=== PATIENT | male | born 1970 | race Caucasian/White ===

== ENCOUNTER 2018-02-26 12:52 | Emergency (ER) | payer BC ==
[2018-02-26 14:06] VITALS: BP 136/83
--- NOTE | 2018-02-26 14:18 | ED ---
Skin Complaint - HPI Summary HPI Summary: 47 yr old with pustules left arm. He scratched his left wrist area on metal door on 02/23 and then on morning of 02/24 the patient developed redness and also pustules left forearm and left arm one on each site. He denies fever, chills. Doesn't know his last BOOSTRIX shot. - History of Current Complaint Chief Complaint: UCSkin Time Seen by Provider: 02/26/18 14:06 Stated Complaint: SKIN COMP Pain Intensity: 0 - Allergy/Home Medications Allergies/Adverse Reactions: Allergies Allergy/AdvReac Type Severity Reaction Status Date / Time erythromycin Allergy Rash Uncoded 02/26/18 13:52 Home Medications: Home Medications Aspirin [Aspir-Low] 81 mg PO DAILY 02/26/18 [History Confirmed 02/26/18] Ibuprofen TAB* [Motrin TAB* 800 MG] 800 mg PO ONCE PRN 02/26/18 [History Confirmed 02/26/18] Lisinopril/HCTZ 20/12.5(NF) [Zestoretic 20/12.5(NF)] 1 tab PO DAILY 02/26/18 [ History Confirmed 02/26/18] PMH/Surg Hx/FS Hx/Imm Hx - Surgical History Surgery Procedure, Year, and Place: benign tumor from right great toe 1991 Infectious Disease History: No Infectious Disease History: Denies: Traveled Outside the [place] in Last 30 Days - Family History Known Family History: Positive: None - Social History Occupation: Employed Full-time Alcohol Use: Occasionally Substance Use Type: Reports: None Smoking Status (MU): Never Smoked Tobacco Review of Systems Constitutional: Negative Positive: Other - abrasion and pustules arm All Other Systems Reviewed And Are Negative: Yes Physical Exam Triage Information Reviewed: Yes Vital Signs On Initial Exam: Initial Vitals Temp Pulse Resp BP Pulse Ox 98 F 79 18 136/83 79 02/26/18 13:58 02/26/18 13:58 02/26/18 13:58 02/26/18 13:58 02/26/18 13:58 Vital Signs Reviewed: Yes Appearance: Positive: Well-Appearing, No Pain Distress Skin: Positive: Other - Old pustule with scab on the left forearm and left arm with also mild redness around the abrasion left wrist. No drainage at this point. No streaking. These areas are isolated and from each other. Head/Face: Positive: Normal Head/Face Inspection Eyes: Positive: EOMI Respiratory/Lung Sounds: Positive: Clear to Auscultation, Breath Sounds Present Cardiovascular: Positive: RRR. Negative: Murmur Abdomen Description: Positive: Nontender Musculoskeletal: Positive: Strength/ROM Intact Neurological: Positive: Sensory/Motor Intact, Alert, Oriented to Person Place, Time, CN Intact II-III Psychiatric: Positive: Normal - [place] Coma Scale Best Eye Response: 4 - Spontaneous Best Motor Response: 6 - Obeys Commands Best Verbal Response: 5 - Oriented Coma Scale Total: 15 Diagnostics - Vital Signs Vital Signs Temp Pulse Resp BP Pulse Ox 02/26/18 13:58 98 F 79 18 136/83 79 - Laboratory Lab Statement: Any lab studies that have been ordered have been reviewed, and results considered in the medical decision making process. Course/Dx - Course Course Of Treatment: 47 yr old male with abrasion and secondary isolated cellulitis wrist, and there are also two pustule, scab areas to the left forearm and upper arm. - Diagnoses Provider Diagnoses: Cellulitis of wrist, Furuncle Discharge - Sign-Out/Discharge Documenting (check all that apply): Patient Departure All imaging exams completed and their final reports reviewed: No Studies - Discharge Plan Condition: Good Disposition: HOME Prescriptions: DOXYcycline CAP(*) [DOXYcycline 100MG CAP(*)] 100 mg PO BID #20 cap Patient Education Materials: Furunculosis and Carbunculosis (ED), Abrasion (ED) Referrals: Kamla Ayala PA [Primary Care Provider] - - Billing Disposition and Condition Condition: GOOD Disposition: Home
[2018-02-26] MEDS ORDERED: Tetan/Diph/Pertus SYR(Tdap)* 0.5 ML SYR(BOOSTRIX) use SYR IM ONE (14:19)
== END 2018-02-26 14:27 | disposition home or self-care (01) ==
LOC: UCCORT 12:52
DX: L03.114 Cellulitis of left upper limb (principal); L02.424 Furuncle of left upper limb; Z79.82 Long term (current) use of aspirin; Z88.1 Allergy status to other antibiotic agents
CPT/HCPCS: 90715; 99212; G0463

== ENCOUNTER 2018-02-27 08:16 | Emergency (ER) | payer BC ==
--- NOTE | 2018-02-27 09:03 | ED ---
Skin Complaint - HPI Summary HPI Summary: Pt is a 47 y/o male who presents to the ED c/o skin abrasion. He scraped his left hand on the door of a restaurant 4 days ago. 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 Over the next few days, he first noticed welts traveling up his left arm. The welts have now spread to both legs, his right cheek, and neck, but not his right arm. He describes the welts as swollen with purulent discharge and tender, but not itchy. Last night he began to feel flu-adrian, reporting body aches, stiff neck, and mild SOB. He took Ibuprofen to the symptoms. He denies any fever, chills, congestion, photophobia, or RIVERA. At an urgent care yesterday he was put on Doxycycline, which has not helped his symptoms. PMHx HTN and GERD. - History of Current Complaint Chief Complaint: EDRashSkinAbscess Time Seen by Provider: 02/27/18 08:44 Stated Complaint: CUT/RASH DEVELOPED Hx Obtained From: Patient Onset/Duration: Started Days Ago - 4, Worse Since Timing: Constant Current Severity: Mild Pain Intensity: 2 Pain Scale Used: 0-10 Numeric Skin Location: Neck, Arm, Hand, Leg Character: Swelling, Pain, Redness, Raised Aggravating Symptom(s): Touch Alleviating Symptom(s): Nothing - Allergy/Home Medications Allergies/Adverse Reactions: Allergies Allergy/AdvReac Type Severity Reaction Status Date / Time erythromycin Allergy Rash Uncoded 02/27/18 08:43 PMH/Surg Hx/FS Hx/Imm Hx Previously Healthy: Yes Endocrine/Hematology History: Denies: Hx Diabetes Cardiovascular History: Reports: Hx Hypertension GI History: Reports: Hx Gastroesophageal Reflux Disease - Surgical History Surgery Procedure, Year, and Place: benign tumor from right great toe 1991 Infectious Disease History: No Infectious Disease History: Denies: Traveled Outside the [place] in Last 30 Days - Family History Known Family History: Positive: Diabetes - Social History Alcohol Use: Occasionally Hx Substance Use: No Substance Use Type: Reports: None Hx Tobacco Use: No Smoking Status (MU): Never Smoked Tobacco Review of Systems Positive: Fatigue. Negative: Fever, Chills Cardiovascular: Negative Respiratory: Negative Gastrointestinal: Negative Positive: Rash Negative: Headache All Other Systems Reviewed And Are Negative: Yes Physical Exam - Summary Physical Exam Summary: Appearance: Well appearing, no pain distress Skin: warm, dry, reflects adequate perfusion, raised erythematous lesions with excoriated centers on left forearm, anterior and posterior neck, and bilateral LE Head/face: normal Eyes: EOMI, NICHELLE ENT: mucous membranes moist Neck: supple, non-tender Respiratory: CTA, breath sounds present Cardiovascular: RRR, pulses symmetrical Abdomen: non-tender, soft Bowel Sounds: present Musculoskeletal: normal, strength/ROM intact Neuro: normal, sensory motor intact, A&Ox3 Triage Information Reviewed: Yes Vital Signs On Initial Exam: Initial Vitals Temp Pulse Resp BP Pulse Ox 98.8 F 99 20 151/89 98 02/27/18 08:40 02/27/18 08:40 02/27/18 08:40 02/27/18 08:40 02/27/18 08:40 Vital Signs Reviewed: Yes Appearance: Positive: Well-Appearing, No Pain Distress, Well-Nourished Skin: Positive: Warm, Other - Numerous erythematous raised lesions with central excoriations and crusting. Lesions to the bilateral lower extremities, left forearm, anterior and posterior neck Eyes: Positive: EOMI ENT: Positive: Normal ENT inspection Neck: Positive: Supple, Nontender. Negative: Nuchal Rigidity Respiratory/Lung Sounds: Positive: Clear to Auscultation Cardiovascular: Positive: RRR Musculoskeletal: Positive: Normal, Strength/ROM Intact Neurological: Positive: Alert, Oriented to Person Place, Time Diagnostics - Vital Signs Vital Signs Temp Pulse Resp BP Pulse Ox 02/27/18 08:40 98.8 F 99 20 151/89 98 - Laboratory Lab Statement: Any lab studies that have been ordered have been reviewed, and results considered in the medical decision making process. Course/Dx - Course Course Of Treatment: Patient with rash that appears to be impetigo with central pustular lesions with surrounding erythema. Patient is oriented these. He is on doxycycline already. Provided him with chlorhexidine soap and also will use topical Bactroban. Have him follow up with primary care physician in 2 days. - Differential Diagnoses - Skin Complaint Differential Diagnoses: Eczema, Impetigo, Local Allergic Reaction, Poison [place], Poison [place] - Diagnoses Provider Diagnoses: Impetigo Discharge - Sign-Out/Discharge Documenting (check all that apply): Patient Departure - Discharge Plan Condition: Improved Disposition: HOME Prescriptions: Mupirocin 2% CREAM* [Bactroban 2% CREAM*] 1 applic TOPICAL TID 10 Days #1 tube Patient Education Materials: Impetigo (ED) Forms: *Work Release Referrals: Kamla Ayala PA [Primary Care Provider] - Additional Instructions: Wash your body today with soap provided. Repeat this in 2 days. Return with fevers, worse, new symptoms or other concerns. Continue doxycycline. Tylenol for body aches or chills. Follow-up with your primary care physician in the next 1-2 days for wound recheck. - Billing Disposition and Condition Condition: IMPROVED Disposition: Home - Attestation Statements Document Initiated by Maria Del Rosario: Yes Documenting Scribe: Dinora Ochoa Provider For Whom Maria Del Rosario is Documenting (Include Credential): Jeremi Herrera MD Scribe Attestation: Dinora Hernandez, scribed for Jeremi Herrera MD on 02/27/18 at 1127. Scribe Documentation Reviewed: Yes Provider Attestation: The documentation as recorded by the Dinora ojeda accurately reflects the service I personally performed and the decisions made by , Jeremi Herrera MD
[2018-02-27 10:09] VITALS: BP 144/86
== END 2018-02-27 10:07 | disposition home or self-care (01) ==
LOC: ED 08:16
DX: L01.00 Impetigo, unspecified (principal); I10 Essential (primary) hypertension; K21.9 Gastro-esophageal reflux disease without esophagitis
CPT/HCPCS: 36415; 86703; 99281

== ENCOUNTER 2018-02-28 11:17 | Observation (INO) | payer BC ==
[2018-02-28] MEDS ORDERED: NS 0.9% 1000 ML* 1,000 ML IV ONE (12:48)
[2018-02-28] MEDS ORDERED: Ketorolac INJ* 30 MG/ML 1 ML VIAL IV PUSH ONE (12:50)
--- NOTE | 2018-02-28 12:58 | ED ---
Skin Complaint - HPI Summary HPI Summary: Patient is a 39-year-old who presents emergency department for ongoing rash 3 days. Patient denies past medical of acid reflux and hypertension. 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 Patient states that 3 days ago he was at work when he Only scraped his arm on a doorway. He states area progressively got redder and became a bump. He states that he then developed a second bump on his left arm and was checked out at [facility]. He was started on doxycycline. Patient states that lesions spread into legs and neck and face. Patient was seen in ER yesterday and Bactroban ointment was added. Patient returns today because he feels rash is getting worse and he also was feeling feverish and myalgia. Otherwise denies upper respiratory symptoms, abdominal pain, vomiting, diarrhea. Symptoms are [id number] in severity. Touching affected areas makes symptoms worse. Rest makes symptoms better. Patient states areas are painful and mildly itchy. Patient states no one at home has similar rash. - History of Current Complaint Chief Complaint: EDRashSkinAbscess Time Seen by Provider: 02/28/18 12:31 Stated Complaint: WAS TOLD TO RETURN Hx Obtained From: Patient Pain Intensity: 6 - Allergy/Home Medications Allergies/Adverse Reactions: Allergies Allergy/AdvReac Type Severity Reaction Status Date / Time erythromycin base Allergy Rash Verified 02/28/18 11:20 PMH/Surg Hx/FS Hx/Imm Hx Previously Healthy: Yes Endocrine/Hematology History: Denies: Hx Diabetes Cardiovascular History: Reports: Hx Hypertension GI History: Reports: Hx Gastroesophageal Reflux Disease - Surgical History Surgery Procedure, Year, and Place: benign tumor from right great toe 1991 Infectious Disease History: No Infectious Disease History: Denies: Traveled Outside the [place] in Last 30 Days - Family History Known Family History: Positive: None, Diabetes - Social History Occupation: Employed Full-time Lives: With Family Alcohol Use: Occasionally Hx Substance Use: No Substance Use Type: Reports: None Hx Tobacco Use: No Smoking Status (MU): Never Smoked Tobacco Review of Systems Positive: Fever, Chills Eyes: Negative ENT: Negative Cardiovascular: Negative Respiratory: Negative Gastrointestinal: Negative Positive: Myalgia Positive: Rash Neurological: Negative All Other Systems Reviewed And Are Negative: Yes Physical Exam Triage Information Reviewed: Yes Vital Signs On Initial Exam: Initial Vitals Temp Pulse Resp BP Pulse Ox 99.6 F 102 16 173/111 99 02/28/18 11:19 02/28/18 11:19 02/28/18 11:19 02/28/18 11:19 02/28/18 11:19 Vital Signs Reviewed: Yes Appearance: Positive: Well-Appearing - Pt. sitting on bed in NAD. Skin: Positive: Warm, Dry, Other - On left lower arm there are two lesions that are red, indurated and painful with scabbing in the center. To lower legs bilaterally there are lesions that are erythematous and indurated and appear more like nodules. Also located at the top of back and neck and right side of face. Head/Face: Positive: Normal Head/Face Inspection Eyes: Positive: Normal, EOMI Neurological: Positive: Normal, CN Intact II-III Psychiatric: Positive: Affect/Mood Appropriate Diagnostics - Vital Signs Vital Signs Temp Pulse Resp BP Pulse Ox 02/28/18 11:19 99.6 F 102 16 173/111 99 - Laboratory Result Diagrams: 03/01/18 05:26 03/01/18 05:26 Lab Statement: Any lab studies that have been ordered have been reviewed, and results considered in the medical decision making process. Course/Dx - Course Course Of Treatment: Patient presenting with ongoing rash after 3 days of doxycycline. He has a low-grade fever in the ER and is mildly tachycardic. Blood pressure elevated. Basic blood work. Patient IV Toradol for pain. Case discussed with Dr. Fung who examined patient. She is concerned for possible MRSA infection. CBC shows normal WBC. Mildly elevated glucose, sed rate and CRP. However patient's legs do appear to be similar to erythema nodosum, concern for potential under lying immunological disorder. Given ongoing worsening rash hospitalist was consulted for admission. I spoke with Dr. Perdomo and she has accepted pt. for admission. - Differential Diagnoses - Skin Complaint Differential Diagnoses: Abscess, Cellulitis, Contact Dermatitis, MRSA, Urticaria - Diagnoses Provider Diagnoses: Rash and nonspecific skin eruption Discharge - Sign-Out/Discharge Documenting (check all that apply): Patient Departure - Discharge Plan Condition: Stable Disposition: ADMITTED TO [facility] - Billing Disposition and Condition Condition: STABLE Disposition: Admitted to [facility]
[2018-02-28 13:20] LABS: ABS Basophils 0 10^3/ul (0-0.2); ABS Eosinophils 0 10^3/ul (0-0.6); ABS Lymphocytes 1.3 10^3/ul (1.0-4.8); ABS Monocytes 0.5 10^3/ul (0-0.8); ABS Neutrophils 5.4 10^3/ul (1.5-7.7); ABS Nucleated RBC 0 10^3/ul; Eosinophil % 0.6 % (0-6); Hematocrit 36 % (42-52); Hemoglobin 12.6 g/dl (14.0-18.0); Lymphocyte % 17.5 % (25-47); Mean Corpuscular HGB Conc 36 g/dl (31-36); Mean Corpuscular Hemoglobin 31 pg (27-31); Mean Corpuscular Volume 87 fL (80-94); Nucleated Red Blood Cells % 0.1; Platelet Count 217 10^3/ul (150-450); Red Blood Count 4.07 10^6/ul (4.00-5.40); Red Cell Distribution Width 13 % (10.5-15); White Blood Count 7.2 10^3/ul (3.5-10.8)
[2018-02-28 13:38] LABS: EGFR Non-African American 90.1 (>60)
[2018-02-28] MEDS ORDERED: Vancomycin(*) 1,000 MG in NS 0.9% 250 ML* 250 ML IVPB ONE ×2 (14:28→17:05)
[2018-02-28] MEDS ORDERED: Magnesium Hydroxide LIQ* 30 ML UDC PO PRN (16:00)
[2018-02-28] MEDS ORDERED: Ondansetron INJ* 2 MG/ML VIAL IV PRN (16:00)
[2018-02-28] MEDS ORDERED: Al Hydrox/Mg Hydrox/Simet LIQ* 30 ML UDC PO PRN (16:00)
[2018-02-28] MEDS ORDERED: Acetaminophen TAB* 325 MG PO PRN (16:00)
[2018-02-28] MEDS: NS 0.9% 1000 ML* 1,000 ML IV SCH (17:57)
[2018-02-28] MEDS ORDERED: Vancomycin per Pharmacy* NOTE FOLLOW UP PRN (18:40)
--- NOTE | 2018-02-28 21:09 | HP ---
HISTORY AND PHYSICAL: ADDENDUM: ASSESSMENT AND PLAN: Rash. We will also be continuing vancomycin. ERIC MARIA, LEONID [id number]/[facility] #: [id number] [facility] HOSPITALJamey
--- NOTE | 2018-02-28 21:51 | HP ---
AMENDED REPORT NOW INCLUDES DESIGNATED COSIGNER ADDENDUM NOW INCLUDED ON THIS REPORT CC: MIGUEL Enriquez; Dr. Fonseca.* HISTORY AND PHYSICAL: DATE OF ADMISSION: 02/28/18 PRIMARY CARE PHYSICIAN: MIGUEL Enriquez. OTHER PROVIDERS: Dr. Fonseca has been consulted. ATTENDING PHYSICIAN: Dr. Loyola * (dictated by Hannah Damico, LEONID) CHIEF COMPLAINT: Rash. HISTORY OF PRESENT ILLNESS: Mr. Rivas is a 47-year-old man with a past medical history of hypertension, GERD (for which he gets scoped every 2 years), tinnitus, borderline hypertension, bilateral hand pain who presented to the ED today due to worsening rash. 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 As the weekend progressed, he started to notice the area was "red and angry" and then throughout the weekend, he started noticing subsequent areas of erythema and induration on his upper extremities, specifically first his left upper extremity. He presented to urgent care clinic on Monday and was provided with a prescription of doxycycline and Bactroban ointment. He reports over the last couple of days, he has felt feverish, but with no recorded temp. He also reports he felt "flu like" as he was having "body aches". The patient presented today because the rash has begun to spread further and now includes face, back, and bilateral legs. Reports areas of erythema and induration will often have pustules like a pimple. Reports these areas do not itch. Reports these areas are painful and occasionally ooze. The patient reports that he was completely vaccinated as a child. No history of chicken pox, but believes he possibly had a mild case of shingles several years ago. He denies any recent illness, tick bites, travel, sick contact, new medications, new diet, new herbal supplements, or any other change in environment. While in the ED, the patient received normal saline a 1000 mL, Toradol 30 mg IV, and vancomycin 1000 mg. We were asked to evaluate for admission. PAST MEDICAL HISTORY: 1. Hypertension. 2. GERD, for which the patient is scoped every 2 years. 3. Tinnitus. 4. Borderline diabetes which is diet controlled 5. Bilateral hand pain. PAST SURGICAL HISTORY: 1. Surgery for benign tumor on right great toe. HOME MEDICATIONS: 1. Aspirin 81 mg p.o. daily. 2. Doxycycline 100 mg p.o. b.i.d. 3. Nexium 40 mg p.o. daily. 4. Ibuprofen 800 mg p.o. daily. 5. Lisinopril/HCTZ 20/12.5 one tab p.o. daily. 6. Mupirocin one application topical t.i.d. ALLERGIES: ERYTHROMYCIN - rash. FAMILY HISTORY: Reports many family members have diabetes. Reports grandfather passed at age 65 from CAD. Other grandparents lived into 90s. Denies cancer family history. SOCIAL HISTORY: Denies tobacco use. Reports occasional EtOH use. Denies drug use. 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 The patient is , but , and lives with his girlfriend and her 2 kids. The patient reports that his , Helga Rivas, will be his surrogate decision maker in the event he is unable to make his own decisions. REVIEW OF SYSTEMS: Constitutional: No fevers. No anorexia. Reports he felt "feverish" but no recorded temp. Cardiac: No chest pain. No edema. Respiratory: No cough. No hemoptysis. No shortness of breath. Reports muscle pain with breathing, which he associates to flu like symptoms. GI: No nausea, vomiting. No diarrhea. No abdominal pain. : No gross hematuria. No dysuria. Neurologic: No focal weakness or sensory loss. No dizziness. Eyes: No visual complaints. ENT: No sore throat. No nasal congestion. No ear pain. Musculoskeletal: Reports 2 to 3 days of "body aches". Skin: The patient has multiple areas on bilateral arms, back, and bilateral legs of rash. Psych: No psychosis, anxiety, depression. PHYSICAL EXAMINATION GENERAL: Mr. Rivas is a well-developed, well-nourished middle-aged man sitting on the ED stretcher and he is no acute distress. Appears stated age. VITAL SIGNS: Temp 98.1, HR 92, RR 16, O2 sat 98%, BP 143/90. HEENT: Eyes: Conjunctivae clear. Pupils are equal and reactive. EOMs intact. ENT: External ears and nose normal. Tympanic canals patent. Tympanic membranes normal. Lips: Within normal limits. Oropharynx: Free from lesions , erythema, exudate. LYMPHATIC: No cervical, supraclavicular lymphadenopathy. RESPIRATORY: Respiratory Effort: No accessory muscle use. The patient breathing with ease. Lungs: Clear to auscultation. No rales, rhonchi, or wheezing. CARDIAC: No murmurs, rubs, or gallops. S1, S2 present. ABDOMEN: Soft, nontender, nondistended, bowel sounds x4. EXTREMITIES: No lower extremity edema. Pedal pulses positive. MUSCULOSKELETAL: No clubbing or cyanosis. No swollen joints. Full range of motion. NEUROLOGIC: Sensation is grossly intact. No neuro deficits appreciated. SKIN: The patient has circular reddened, indurated, warm spots on bilateral legs, right cheek, upper back, and bilateral arms. PSYCH: Oriented x3. Mood and affect are normal. DIAGNOSTIC STUDIES/LABORATORY DATA: WBC 7.2, RBC 4.07, hemoglobin 12.6, hematocrit 36, platelets 217. Sodium 138, potassium 4.0, chloride 105, carbon dioxide 27, BUN 12, creatinine 0.90, glucose of 155, lactic is 1.0, calcium 8.9. Total bilirubin 0.70, AST 21, ALT 21, alk phos 75. CRP 59.01. ESR pending. Culture from left arm wound is MRSA negative. Awaiting Gram stain final. ASSESSMENT AND PLAN: Mr. Rivas is a 47-year-old man with a past medical history of hypertension, gastroesophageal reflux disease, tinnitus, borderline diabetes, bilateral hand pain, who presented to the emergency department today with a rash and has failed outpatient treatment. The patient will be admitted to observation for further evaluation. 1. Rash. Assessment: As mentioned above, the patient has multiple areas of circular, reddened, indurated, warm spots on face, bilateral arms, upper back, and bilateral lower legs. Plan: Dermatology has been contacted and plans to see the patient tomorrow. We very much appreciate their consultation. Labs have also been ordered for send out and for routine labs in the morning. We will also be continuing vancomycin and IV fluids. 2. Hypertension. Assessment: The patient is currently normotensive. Plan: We will continue the patient's home medications the same. We will monitor vital signs routinely. 3. Gastroesophageal reflux disease. Assessment: The patient is currently asymptomatic. Plan: We will continue patient's home medication of Nexium. 4. Tinnitus. Assessment: Asymptomatic currently. Plan: The patient to follow up with primary care provider as this is chronic and they are aware of this problem. 5. Borderline diabetes. Assessment: Nonfasting random glucose is 155. The patient reports he is controlling diabetes risk factors by reducing carbohydrate intake, adapting occasional vegetarian diet, and exercising regularly. Plan: The patient to follow up with primary care provider after discharge for further evaluation. 6. Bilateral hand pain. Assessment: The patient is currently pain free. The patient reports he takes ibuprofen 800 mg daily due to bilateral hand pain. Plan: The patient has pain meds ordered p.r.n. We discussed risks of taking ibuprofen regularly. 7. FEN: The patient will be placed on a regular diet as he does not prefer a vegetarian diet. We will also try the fluid replacement at 75 mL/hour of normal saline. 8. Code status: Full code. 9. DVT prophylaxis. The patient is at moderate risk. We will encourage early and frequent ambulation. SCDs ordered. TIME SPENT: Approximately 60 minutes were spent on this admission, greater than half the time was spent with the patient, obtaining my history, performing the physical exam, and reviewing my plan of care. This case has been reviewed by my attending, Dr. Loyola, who agreed with the plan of care. LEONID BOUDREAUX
[2018-02-28] MEDS: Vancomycin(*) 1,250 MG in NS 0.9% 250 ML* 250 ML IVPB SCH (22:16)
[2018-02-28] MEDS: Ketorolac INJ* 30 MG/ML 1 ML VIAL IV PUSH PRN (22:23)
[2018-03-01 05:39] LABS: ABS Basophils 0 10^3/ul (0-0.2); ABS Eosinophils 0.1 10^3/ul (0-0.6); ABS Lymphocytes 1.5 10^3/ul (1.0-4.8); ABS Monocytes 0.5 10^3/ul (0-0.8); ABS Neutrophils 4.7 10^3/ul (1.5-7.7); ABS Nucleated RBC 0 10^3/ul; Eosinophil % 1.3 % (0-6); Hematocrit 35 % (42-52); Hemoglobin 11.8 g/dl (14.0-18.0); Mean Corpuscular HGB Conc 34 g/dl (31-36); Mean Corpuscular Hemoglobin 30 pg (27-31); Mean Corpuscular Volume 88 fL (80-94); Nucleated Red Blood Cells % 0; Platelet Count 201 10^3/ul (150-450); Red Blood Count 3.92 10^6/ul (4.00-5.40); Red Cell Distribution Width 13 % (10.5-15); White Blood Count 6.9 10^3/ul (3.5-10.8)
[2018-03-01 06:00] LABS: EGFR Non-African American 107.8 (>60)
[2018-03-01] MEDS: Vancomycin(*) 1,250 MG in NS 0.9% 250 ML* 250 ML IVPB SCH (06:09)
[2018-03-01] MEDS ORDERED: Omeprazole CAP* 20 MG PO SCH (09:00)
[2018-03-01] MEDS: Ketorolac INJ* 30 MG/ML 1 ML VIAL IV PUSH PRN ×2 (10:35→20:11)
[2018-03-01] MEDS: NS 0.9% 1000 ML* 1,000 ML IV SCH (10:35)
--- NOTE | 2018-03-01 11:57 | PN ---
Subjective Date of Service: 03/01/18 Interval History: Resting in bed. Reports general body aches, but less than previously. Patient requested Toradol and nurse notified. Denies feeling feverish. No recorded temps. 12 point ROS completed and all other negative except above mentioned IV fluids infusing. Discussed plan for ID consult. Patient stated understanding. Family History: Unchanged from Admission Social History: Unchanged from Admission Past Medical History: Unchanged from Admission Objective Active Medications: Acetaminophen (Tylenol Tab*) 650 mg PO Q4H PRN PRN Reason: FEVER/PAIN Al Hydrox/Mg Hydrox/Simethicone (Maalox Plus*) 30 ml PO Q6H PRN PRN Reason: INDIGESTION Hydrochlorothiazide (Hydrodiuril Tab*) 12.5 mg PO 2000 [facility] Sodium Chloride (Ns 0.9% 1000 Ml*) 1,000 mls @ 75 mls/hr IV PER RATE [facility] Last Admin: 03/01/18 10:35 Dose: 75 mls/hr Ketorolac Tromethamine (Toradol Inj*) 30 mg IV PUSH Q6H PRN PRN Reason: PAIN Last Admin: 03/01/18 10:35 Dose: 30 mg Lisinopril (Prinivil Tab*) 20 mg PO 2000 [facility] Magnesium Hydroxide (Milk Of Magnesia Liq*) 30 ml PO Q4H PRN PRN Reason: CONSTIPATION Omeprazole (Prilosec Cap*) 20 mg PO DAILY [facility] Last Admin: 03/01/18 08:18 Dose: 20 mg Ondansetron HCl (Zofran Inj*) 4 mg IV Q4H PRN PRN Reason: NAUSEA/VOMITING Pharmacy Consult (Vancomycin Per Pharmacy*) 1 note FOLLOW UP . PRN PRN Reason: PER PROTOCOL Pharmacy Profile Note (Vancomycin Trough Check) 1 note FOLLOW UP 1330 ONE Stop: 03/01/18 13:31 Vital Signs - 8 hr 03/01/18 03:57 Temperature 98.1 F Pulse Rate 82 Respiratory 18 Rate Blood Pressure 162/92 (mmHg) O2 Sat by Pulse 98 Oximetry Oxygen Devices in Use Now: None Appearance: Well appearing Eyes: No Scleral Icterus Ears/Nose/Mouth/Throat: Clear Oropharnyx, Mucous Membranes Moist Neck: NL Appearance and Movements; NL JVP Respiratory: Symmetrical Chest Expansion and Respiratory Effort, Clear to Auscultation Cardiovascular: NL Sounds; No Murmurs; No JVD, RRR, No Edema Abdominal: NL Sounds; No Tenderness; No Distention Lymphatic: No Cervical Adenopathy Extremities: No Edema, No Clubbing, Cyanosis Skin: - - Round, reddened, indurated spots on bilat arms, bilat legs, and one on right face. Neurological: Alert and Oriented x 3 Nutrition: Taking PO's Result Diagrams: 03/01/18 05:26 03/01/18 05:26 Microbiology and Other Data: Microbiology 02/28/18 14:25 Skin and Soft Tissue MRSA/MSSA (PCR - Final Arm Left Mrsa Negative S.aureus Negative Gram Stain - Final Wound Culture - Preliminary No Growth Day 1 Assess/Plan/Problems-Billing Assessment: 47 yr old male with rash which developed after scrap to left hand. Scrap occured on Friday 02/23 and rash developed through the weekend. - Patient Problems (1) Rash and nonspecific skin eruption Comment: - Derm consulted. Suspected Erythema Nodosum and/or Carbuncles. - ID consulted and does not suspected infection in origin, therefore, vanco stopped. - Plan for biopsy (2) Hypertension Comment: - Continue home medications (3) Myalgia Comment: - Continue pain medications prn Status and Disposition: OBV. Continue to monitor and provide supportive care. I very much appreciate Derm, ID and pathology consults. Attending: Josue Laws
[2018-03-01] MEDS ORDERED: Vancomycin Trough Check NOTE FOLLOW UP ONE (13:30)
--- NOTE | 2018-03-01 15:02 | CONS ---
CONSULTATION REPORT: DATE OF CONSULT: 03/01/18 REQUESTING PROVIDER: Hannah Damico NP CONSULTING SERVICE: Infectious Disease. REASON FOR CONSULT: Skin rash. IMPRESSION: Recent injury to the left forearm with a scratch, sounds like was complicated by a localized skin and soft tissue infection versus less likely a pathergy reaction and now multiple erythematous patches with some pustular component on the face, trunk, arms, and on anterior shins less pustular component. 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 They could be a response to the initial soft infection on the left arm. Many of them on the arms were present before he started taking doxycycline, those on the legs were not. It could be an allergic reaction to doxycycline on the legs. RECOMMENDATIONS: We will stop the vancomycin. Recommend corticosteroid treatment. Consider skin biopsy of one of the lesions on his arms or trunk to include component of the pannus. HISTORY OF PRESENT ILLNESS: This is a 47-year-old man, who was well until last week, scratched his left arm on a door at work and developed some redness and fluid- filled vesicles. It was painful and itchy. Then, he developed more up the same arm on the left, but they were more red, larger and more painful with a pustular center. He was seen on 02/26/18 and started on doxycycline, which he took. He continued to develop more on the arms and trunk and then both anterior legs below the knee. Those are more painful on the leg. Because of more lesions developing, he came back to the hospital on 02/27/18 and they gave him mupirocin to apply to the lesions and recommended he continue doxycycline. He came back the next day with feverish feeling, chills, sweats, more lesions. He was started on vancomycin and admitted to the hospital. His C-reactive protein was 60, white count 7, sed rate 45. Creatinine 0.9, which is 0.7 today. He has got a few new spots on his right arm and back today. None of that started have resolved. They are all slightly painful except for more painful on the legs, none are itchy. Swab on the left arm was taken that showed 2+ epithelial cells, no neutrophils, possible 1+ gram-positive cocci, Staph aureus PCR negative, with cultures no growth. That was taken before he started vancomycin. He has had no fever here. His appetite is okay. No mouth or genital lesions. PAST MEDICAL HISTORY: 1. Hypertension. 2. Gastroesophageal reflux disease. 3. Tinnitus. 4. Prediabetes. ALLERGIES: ERYTHROMYCIN caused rash. MEDICATIONS: 1. Tylenol. 2. Hydrochlorothiazide. 3. Ketorolac as needed. 4. Lisinopril. 5. Omeprazole. 6. Vancomycin 1250 mg IV every 8 hours. SOCIAL HISTORY: He lives in [place]. 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 He has no travel or sick contacts. FAMILY HISTORY: No recurrent infections. REVIEW OF SYSTEMS: All negative except as noted above in the history of present illness. PHYSICAL EXAM: Vital Signs: Temperature of 36.7, heart rate 80, respiratory rate 18, blood pressure 170/90, oxygen saturation 98% on room air. In general, he is awake, not in distress. Neurologic: He is oriented x3. Follows all commands. HEENT: There is no conjunctival hemorrhage. Oropharynx without lesions. Neck is supple without mass. Lymph Nodes: There is no cervical, supraclavicular, inguinal, axillary, or epitrochlear lymphadenopathy. Heart is regular rate and rhythm without murmurs, rubs, or gallops. Lungs are clear to auscultation bilaterally. Abdomen: Soft, nontender, nondistended. There are bowel sounds present. Skin: On bilateral below the knee anterior leg, there are tender, erythematous patches about 1 to 3 cm each. On the trunk, arms, right cheek and back, there are erythematous patches with 3 to 4 mm punctuate centers, which are tender and nonfluctuant. They are nonblanching. LABORATORY DATA: Creatinine 0.7. CRP 59. White blood cell count 6.9, hemoglobin 11.8, platelets 201. Please see impressions and recommendations as outlined above, which I have discussed with Dr. Loyola. Thanks for asking me to see Mr. Rivas in consultation. [id number]/[facility] #: [id number] [facility] HOSPITALJamey
[2018-03-01] MEDS ORDERED: Aspirin EC TAB* 81 MG TAB.EC PO SCH (19:00)
[2018-03-01] MEDS ORDERED: Hydrochlorothiazide TAB* 25 MG PO SCH (20:00)
[2018-03-01] MEDS ORDERED: Lisinopril TAB* 10 MG PO SCH (20:00)
[2018-03-02 06:56] LABS: ABS Basophils 0 10^3/ul (0-0.2); ABS Eosinophils 0.1 10^3/ul (0-0.6); ABS Lymphocytes 1.6 10^3/ul (1.0-4.8); ABS Monocytes 0.4 10^3/ul (0-0.8); ABS Neutrophils 3.9 10^3/ul (1.5-7.7); ABS Nucleated RBC 0 10^3/ul; Eosinophil % 1.5 % (0-6); Hematocrit 34 % (42-52); Hemoglobin 11.9 g/dl (14.0-18.0); Lymphocyte % 26.2 % (25-47); Mean Corpuscular HGB Conc 36 g/dl (31-36); Mean Corpuscular Hemoglobin 31 pg (27-31); Mean Corpuscular Volume 88 fL (80-94); Nucleated Red Blood Cells % 0.1; Platelet Count 215 10^3/ul (150-450); Red Blood Count 3.83 10^6/ul (4.00-5.40); Red Cell Distribution Width 13 % (10.5-15)
[2018-03-02 07:12] LABS: EGFR Non-African American 107.8 (>60)
[2018-03-02] MEDS ORDERED: Dextrose 50% Syringe 50 ML* 25 GM/50 ML SYRINGE IV PUSH PRN (07:16)
[2018-03-02] MEDS ORDERED: Ibuprofen TAB* 600 MG PO PRN (07:23)
[2018-03-02] MEDS ORDERED: Insulin LISPRO* 1 UNITS UNIT SUBCUT SCH (07:30)
[2018-03-02] MEDS ORDERED: Omeprazole CAP* 20 MG PO SCH (09:00)
[2018-03-02] MEDS ORDERED: predniSONE TAB* 20 MG PO SCH (09:00)
[2018-03-02 11:00] VITALS: BP 155/97
[2018-03-02 15:27] LABS: Sm (Smith) IgG Antibody <0.2 U
--- NOTE | 2018-03-03 08:09 | DS ---
CC: MIGUEL Godoy; Dr. Josue Laws * DISCHARGE SUMMARY: DATE OF ADMISSION: 02/28/18 DATE OF DISCHARGE: 03/02/18 PRIMARY CARE PROVIDER: MIGUEL Lainez. MY ATTENDING WHILE IN THE HOSPITAL: Dr. Josue Laws.* (DICTATED BY MIGUEL ZAIDI) PRIMARY DISCHARGE DIAGNOSES: 1. Sweet's syndrome. 2. Cellulitis. SECONDARY DISCHARGE DIAGNOSES: 1. Prediabetes. 2. Hypertension. 3. Gastroesophageal reflux disease. 4. Idiopathic hand pain. STUDIES DONE WHILE IN THE HOSPITAL: None. MEDICATIONS AT DISCHARGE: 1. Nexium 40 mg p.o. daily. 2. Zestoretic 19/04.5 one tab p.o. daily. 3. Mupirocin one application topical t.i.d. 4. Tylenol 650 mg p.o. q.4 hours as needed. 5. Prednisone 60 mg p.o. daily. 6. Bactrim double strength one tab p.o. b.i.d. HOSPITAL COURSE: This is a brief summary of the patient's presentation. For more details, please see the history and physical from Hannah Damico NP on 02/28/18. In brief, the patient is a 47-year-old male with past medical history significant for the above, who presented to the emergency department after he scratched his hand on 02/23/18, which subsequently became increasingly red and painful. He had systemic symptoms including body aches and subjective fevers. He went to the urgent care and was prescribed doxycycline. After he started taking the doxycycline, he developed induration across his body with pustules, which were painful and spread all over his body including rashes that look like a bruise on his shins. The patient was admitted to the hospital. The patient was given IV vancomycin. The patient had no elevated temperature. The patient was initially tachycardic but this resolved with fluid administration. The patient had no hypoxia. The patient's initial scratch improved greatly with antibiotics. The patient's rash also improved. The patient was seen in consultation by Dr. Gen Mitchell of Infectious Disease, who believed that the patient's cellulitis improved and need no more antibiotics. Recommend corticosteroid treatment and skin biopsy. The patient was seen in consultation by Dr. Fonseca of Dermatology. The skin biopsy I believed this was related to Sweet's syndrome. The patient was started on steroids. The patient's skin biopsy came back positive for Sweet's syndrome. Dr. Fonseca believed that the patient needed more antibiotics to cover for possible carbuncles. The patient was stable and amenable for discharge on 03/02/18 with improvement in his rashes. PHYSICAL EXAMINATION ON DATE OF DISCHARGE: General: The patient is a 47-year- old male, who appears stated age and sitting comfortably in bed, in no acute distress. HEENT: Head: Normocephalic, atraumatic. Sclerae anicteric. No conjunctival injection. Nasal mucosa moist. Oral mucosa moist. No pharyngeal erythema, discharge, or exudates. Vital signs at the time of discharge: Temperature 98.6, pulse rate 91, respiratory rate 16, oxygen saturation 97% on room air, blood pressure 155/97. Neck: Supple, nontender. No lymphadenopathy. No carotid bruits auscultated. No JVD. Cardiac: Regular rate and rhythm. No clicks, murmurs, gallops, rubs. Pulses 2+ bilaterally in dorsalis pedis, posterior tibialis, and radial areas. Respiratory: Clear to auscultation bilaterally. No wheezes, rales, or rhonchi. Good air exchange bilaterally. Abdomen: Soft, nontender, nondistended. Bowel sounds present, normoactive in all 4 quadrants. No hepatosplenomegaly, no abdominal bruits auscultated. No hepatojugular reflux. Genitourinary: No suprapubic or CVA tenderness. Skin: The patient has numerous large areas of induration with a pustular center on his arms, face, chest, and hands. The patient has numerous areas of erythema on his bilateral shins. The patient has a small area on his left hand that is raised without surrounding erythema corresponding to his original injury. Neuro: Cranial nerves II through XII intact. No focal deficits. Alert and oriented x3. Psychiatric: Pleasant and cooperative. DISCHARGE PLAN: The patient will be discharged to home. The patient will have a steroid taper over approximately 3 weeks. The patient should follow up with Dermatology on Monday to assess for improvement in his rash. The patient will be continued on Bactrim for 5 more days. It is unclear whether this reaction was caused by his initial infection or by the doxycycline. The patient has been recommended not to take doxycycline in the future. The patient should follow up with primary care doctor within 1 week for general medical management. The patient did not have a significant increase in his blood glucose level on steroids while in the hospital. The patient should have a consistent carbohydrate diet and engage in activity as tolerated. TIME SPENT: Approximately 60 minutes was spent on the discharge of this patient , 30 of which was spent [id number] with the patient and obtaining history and physical and discussing treatment plan. MIGUEL ZAIDI [id number]/[facility] #: [id number] DEANGELO
== END 2018-03-02 13:00 | disposition home or self-care (01) ==
LOC: ED 11:17 → MED 15:59
PROVIDERS: ADMIT Internal Medicine; ATTEND Internal Medicine
DX: L98.2 Febrile neutrophilic dermatosis [Sweet] (principal); L03.90 Cellulitis, unspecified; R73.03 Prediabetes; I10 Essential (primary) hypertension; K21.9 Gastro-esophageal reflux disease without esophagitis; R21 Rash and other nonspecific skin eruption; Z79.82 Long term (current) use of aspirin; M79.642 Pain in left hand; M79.641 Pain in right hand; H93.19 Tinnitus, unspecified ear
CPT/HCPCS: 11100; 11101; 36415; 80048; 80053; 83516; 83605; 85025; 85652; 86038; 86140; 86225; 86235; 86255; 86431; 87070; 87077; 87102; 87116; 87205; 87206; 87640; 87641; 88305; 88312; 99284; A9270-GY; G0378; J1885; J3370; J7512

== ENCOUNTER 2019-07-03 12:38 | Emergency (ER) | payer SELFPAY ==
--- NOTE | 2019-07-03 13:30 | UC ---
Head Injury HPI - HPI Summary HPI Summary: 48-year-old male who got his long hair caught in a piece of machinery at work today which ripped out quite a large V shaped chunk of hair from the top of his head. He has no other injury. He has no complaints of pain. Last tetanus was 2 years ago. - History Of Current Complaint Stated Complaint: HEAD INJURY Time Seen by Provider: 07/03/19 13:29 Hx Obtained From: Patient Onset/Duration: Sudden Onset Severity Currently: Mild Severity Initially: Mild Character: Other - Patient denies pain Aggravating Factor(s): Nothing Alleviating Factor(s): Nothing Associated Signs And Symptoms: Positive: Negative - Allergies/Home Medications Allergies/Adverse Reactions: Allergies Allergy/AdvReac Type Severity Reaction Status Date / Time doxycycline Allergy Severe Rash Verified 07/03/19 13:31 erythromycin base Allergy Rash Verified 07/03/19 13:31 Home Medications: Home Medications Esomeprazole Magnesium [Nexium] 40 mg PO DAILY 12/31/14 [History Confirmed 07/02] Lisinopril/HCTZ 20/12.5(NF) [Zestoretic 20/12.5(NF)] 1 tab PO DAILY 02/26/18 [ History Confirmed 07/03/19] Acetaminophen TAB* [Tylenol TAB*] 650 mg PO Q4H PRN tab 03/02/18 [Rx Confirmed 07/03/19] Cholecalciferol TAB* [Vitamin D TAB*] 1,000 units PO DAILY 07/03/19 [History Confirmed 07/03/19] Ibuprofen 800 mg PO Q8H 07/03/19 [History Confirmed 07/03/19] Potassium Chlor TAB* [Potassium Chlor TAB 20 MEQ*] 40 meq PO DAILY 07/03/19 [ History Confirmed 07/03/19] PMH/Surg Hx/FS Hx/Imm Hx Previously Healthy: Yes Cardiovascular History: Hypertension - Surgical History Surgical History: Yes Surgery Procedure, Year, and Place: benign tumor from right great toe 1991 - Family History Known Family History: Positive: None, Diabetes - Social History Occupation: Employed Full-time Lives: With Family Alcohol Use: Occasionally Substance Use Type: None Smoking Status (MU): Never Smoked Tobacco - Immunization History Most Recent Tetanus Shot: UNKNOWN Review of Systems All Other Systems Reviewed And Are Negative: Yes Skin: Positive: Other - Patient has a large V-shaped chunk of hair missing from the scalp. Is Patient Immunocompromised?: No Physical Exam Triage Information Reviewed: Yes Appearance: Well-Appearing, No Pain Distress, Well-Nourished Vital Signs Reviewed: Yes Neck exam: Normal Neck: Positive: Nontender - No C-spine tenderness Musculoskeletal Exam: Normal Musculoskeletal: Positive: Other: - Skull is intact and nontender Neurological Exam: Normal Psychological Exam: Normal Skin: Positive: Other - Patient has a V- shaped chunk of hair missing from his scalp. This skin is still intact. The mid line portion of the V shape is approximately 12 cm in length and the other part of the V shape is approximate 10 cm in length and is approximately 2.0 cm in width Head Injury Course/Dx - Course Course Of Treatment: The patient has no other injury and he complains of no pain at this point time. The skin is intact. He states tonight he is going home and cutting his hair however he would like to return to work at this time. A work note was given to return to work. - Differential Dx/Diagnosis Provider Diagnosis: Traumatic loss of hair Discharge ED - Sign-Out/Discharge Documenting (check all that apply): Patient Departure All imaging exams completed and their final reports reviewed: No Studies - Discharge Plan Condition: Good Disposition: HOME Forms: *Work Release Referrals: Sanjana Carlisle PA [Primary Care Provider] - Additional Instructions: May take Tylenol for pain. Follow-up with your primary care provider as needed. - Billing Disposition and Condition Condition: GOOD Disposition: Home
[2019-07-03 13:31] VITALS: BP 152/92
== END 2019-07-03 14:05 | disposition home or self-care (01) ==
LOC: UCEAST 12:38
DX: L65.8 Other specified nonscarring hair loss (principal); I10 Essential (primary) hypertension; W31.9XXA Contact with unspecified machinery, initial encounter; Y92.9 Unspecified place or not applicable; Y99.0 Civilian activity done for income or pay; Z88.1 Allergy status to other antibiotic agents; Z79.899 Other long term (current) drug therapy
CPT/HCPCS: 99212; G0463